=== PATIENT | male | born 1950 | race Caucasian/White ===

== ENCOUNTER → 2016-11-26 | Outpatient (CLI) | payer MEDICARE, OTHER ==
[~2016-11-26] MED LIST: CLON1TAB3 PO; DESV50TA; ESZO3TAB30; LEVO500T69 PO; OLAN1CAP5; OXYB30GE TD; SRTR100T PO; TEST75GE3 TD
--- NOTE | 2016-11-26 13:22 | Diagnostic Imaging Report ---
PROCEDURE: MRI left upper extremity without contrast. TECHNIQUE: Multiplanar, multisequence MR imaging of the left shoulder was performed without contrast. COMPARISON: None available. INDICATION: Left shoulder pain. FINDINGS: Rotator cuff: No high-grade partial or full-thickness rotator cuff tear. Supraspinatus tendinopathy and superimposed low-grade partial-thickness tearing of the bursal fibers. No rotator cuff muscle atrophy. Glenoid labrum: By non-arthrogram imaging, the glenoid labrum appears intact. No para-labral cyst. Long head of biceps: Long head of biceps is normally positioned within the bicipital groove. The intracapsular segment is intact. Disproportionate fluid within the biceps sheath may relate to biceps tenosynovitis. Bones and cartilage: Humeral head is normal in morphology without fracture or focal osseous lesion. No glenohumeral chondromalacia. Mild degenerative changes of the acromioclavicular joint with small inferior osteophytes. Soft tissues: No glenohumeral joint effusion. No MRI findings to suggest adhesive capsulitis. Small volume of fluid within the subacromial and subdeltoid space suggests bursitis. IMPRESSION: 1. Low-grade partial-thickness tearing of the bursal fibers of the supraspinatus. No high-grade partial-thickness tear or retracted full-thickness tear of the rotator cuff. 2. Long head of biceps is intact. Fluid distending the biceps sheath suggests biceps tenosynovitis. 3. Mild subacromial and subdeltoid bursitis. Dictated by: Dictated on workstation # [id number]
== END ==
LOC: RAD 11:51
PROVIDERS: ATTEND Orthopaedic Surgery
DX: M75.112 Incomplete rotator cuff tear or rupture of left shoulder, not specified as traumatic (principal)
CPT/HCPCS: 73221

== ENCOUNTER 2017-07-19 14:00 | Outpatient (CLI) | payer MEDICARE, OTHER | END 2017-07-19 14:41 | disposition home or self-care (01) | LOC: SLEEP 14:00 | PROVIDERS: ATTEND Otolaryngology Otolaryngology/Facial Plastic Surgery | DX: G47.30 Sleep apnea, unspecified (principal) ==

== ENCOUNTER 2017-10-17 21:00 | Outpatient (CLI) | payer MEDICARE, OTHER | END 2017-10-18 06:19 | disposition home or self-care (01) | LOC: SLEEP 21:00 | PROVIDERS: ATTEND Otolaryngology Otolaryngology/Facial Plastic Surgery | DX: G47.33 Obstructive sleep apnea (adult) (pediatric) (principal); G47.31 Primary central sleep apnea | CPT/HCPCS: 95811 ==

== ENCOUNTER → 2019-12-18 | Outpatient (CLI) | payer MEDICARE, OTHER ==
--- NOTE | 2019-12-18 12:25 | Diagnostic Imaging Report ---
INDICATION: Fell in August 2019. Continued shoulder pain with weakness. EXAMINATION: MRI of the right upper extremity on 12/18/2019. FINDINGS: There is diffuse enlargement and heterogeneity throughout the subscapularis tendon, consistent with tendinosis with a small partial tear not excluded. The long head of the biceps tendon lies in the bicipital groove. It also appears prominent with heterogeneous signal intensity, likely due to a partial intrasubstance tear. There is no discontinuity with the biceps tendon anchor intact. There are full-thickness tears of the supraspinatus and infraspinatus tendons. Retraction measures at least 3.8 cm. Portions of the posterior infraspinatus tendon are intact along the bursal aspect. The labrum is grossly intact on this noncontrast examination. There is narrowing, spurring, and edema at the acromioclavicular joint. There is loss of the subacromial joint space. Minimal fluid in the subdeltoid/subacromial bursa is noted as well as within the glenohumeral joint. Narrowing and spurring at the glenohumeral joint are also present. There is edema tracking along the supraspinatus tendon to the musculature with atrophy of the muscle also present. The remaining musculature is fairly well-preserved. The visualized axilla is unremarkable. IMPRESSION: 1. Full-thickness tear of the supraspinatus and portions of the infraspinatus tendon with retraction as above. 2. Diffuse tendinosis with a partial tear of the subscapularis tendon suspected. An intrasubstance tear of the proximal long head of the biceps tendon is also noted. 3. Diffuse degenerative disease with other findings as above. Dictated by: Dictated on workstation # [id number]
== END ==
LOC: RAD 09:18
PROVIDERS: ATTEND Orthopaedic Surgery
DX: S46.111A Strain of muscle, fascia and tendon of long head of biceps, right arm, initial encounter (principal); S46.011A Strain of muscle(s) and tendon(s) of the rotator cuff of right shoulder, initial encounter; M19.011 Primary osteoarthritis, right shoulder
CPT/HCPCS: 73221

== ENCOUNTER → 2022-08-03 | Outpatient (CLI) | payer MEDICARE, OTHER ==
--- NOTE | 2022-08-03 16:29 | Diagnostic Imaging Report ---
Indication: Arthritis. Time of Exam: 10:54 AM AP view pelvis and 2 views of each hip were obtained. Femoral acetabular alignment is normal bilaterally. Both femoral heads and necks are intact. There is mild spurring at superolateral aspect of the acetabulum bilaterally. Joint spaces are fairly well-maintained. No fractures are seen. Rami are intact. SI joints and symphysis are non-widened. IMPRESSION: Mild degenerative changes bilaterally. No acute bony abnormality is detected. Dictated by: Dictated on workstation # [id number]
--- NOTE | 2022-08-03 17:48 | Diagnostic Imaging Report ---
EXAMINATION: Lumbar spine radiographs, 3 views. COMPARISON: None. HISTORY: 72-year-old male, low back pain. FINDINGS: There is a mild lumbar levocurvature. There is severe disc height loss at L4-L5. There is moderate disc height loss at L2-L3. There are endplate degenerative related changes at both levels. There are also endplate degenerative related changes at L3-L4. There are degenerative changes of the lower thoracic spine. There is no identified compression deformity or fracture. There are right facet degenerative changes at L4-L5 and left facet degenerative changes at L5-S1. The sacroiliac joints are unremarkable. There is an inferior vena cava filter noted at the level of L3. IMPRESSION: 1. Multilevel disc degenerative changes of the thoracolumbar spine most notable at L2-L3 and L4-L5. 2. Facet degenerative changes at L4-L5 and L5-S1, as above. 3. No identified compression deformity or fracture. Dictated by: Dictated on workstation # [id number]
== END ==
LOC: RAD 10:37
PROVIDERS: ATTEND Family Medicine
DX: M17.0 Bilateral primary osteoarthritis of knee (principal); M47.817 Spondylosis without myelopathy or radiculopathy, lumbosacral region; M47.816 Spondylosis without myelopathy or radiculopathy, lumbar region
CPT/HCPCS: 72100; 73523